=== PATIENT | female | born 1990 | race Caucasian/White ===

== ENCOUNTER 2022-04-07 10:00 | Outpatient (REF) | payer OTHER, MEDICAID, SELFPAY ==
[2022-04-07 18:30] LABS: CT PCR NOT DETECTED (Not Detect.); NG PCR NOT DETECTED (Not Detect.)
[2022-04-08 13:04] LABS: BV Int Neg Control Negative (Negative); BV Int Pos Control Positive (Positive)
[2022-04-13 09:52] LABS: HPV 16 RNA NOT DETECTED (NOT DETECTED); HPV mRNA E6/E7 rflx Detected (Not Detected)
== END 2022-04-07 10:01 | disposition home or self-care (01) ==
LOC: HO.LAB 10:00
PROVIDERS: Visit Provider Obstetrics & Gynecology
DX: Z01.419 Encounter for gynecological examination (general) (routine) without abnormal findings (principal); Z11.51 Encounter for screening for human papillomavirus (HPV); N89.8 Other specified noninflammatory disorders of vagina
CPT/HCPCS: 87480; 87491; 87510; 87591; 87624; 87625; 87660; 88142

== ENCOUNTER 2022-04-10 09:35 | Outpatient (REF) | payer OTHER, MEDICAID, SELFPAY ==
[2022-04-11 09:44] LABS: BV Int Neg Control Negative (Negative); BV Int Pos Control Positive (Positive)
== END 2022-04-10 09:36 | disposition home or self-care (01) ==
LOC: HO.LAB 09:35
PROVIDERS: PCP Nurse Practitioner Family; Visit Provider Obstetrics & Gynecology
DX: Z32.02 Encounter for pregnancy test, result negative (principal); N89.8 Other specified noninflammatory disorders of vagina; R10.2 Pelvic and perineal pain
CPT/HCPCS: 81025; 87480; 87510; 87660

== ENCOUNTER 2022-04-10 15:20 | Outpatient (REF) | payer OTHER, MEDICAID, SELFPAY ==
--- NOTE | ~2022-04-10 | US_ITS ---
EXAMINATION: US PELVIS CLINICAL INFORMATION: Left lower quadrant pain, vaginal discharge, last menstrual period 03/22/2022. COMPARISON: 04/04/2019 TECHNIQUE: Ultrasound of the pelvis is performed using both transabdominal and transvaginal transducers along with Doppler. Transvaginal imaging is performed due to inadequate visualization transabdominally. FINDINGS: The uterus is heterogeneous and measures 8.5 x 3.8 x 5.6 cm. No discrete fibroids. Small amount of fluid in the cul-de-sac. 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 Nabothian cysts are identified. Endometrial thickness is 1.5 cm. Right ovary measures 3.0 x 2.6 x 2.4 cm, volume 9.8 mL. 1.8 x 1.5 x 1.9 cm complex right ovarian cyst, possibly a corpus luteum. Left ovary measures 3.0 x 2.1 x 2.1 cm, volume 6.9 mL. Multiple tiny echogenic foci within the left ovary are nonspecific, possibly tiny calcifications. US/US pelvic and transvaginal IMPRESSION: 1. Irregular endometrium with thickness of 1.5 cm. 2. Small amount of free fluid in the cul-de-sac. 3. 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 4. Right ovarian 1.9 cm complex cyst, possibly a corpus luteum, was not previously identified. 5. Multiple tiny echogenic foci within the left ovary are nonspecific, possibly tiny calcifications, not previously identified. Recommend correlation with a clinical exam and possible gynecologic consultation. Recommend follow-up ultrasound in 6-8 weeks.
== END 2022-04-10 15:21 | disposition home or self-care (01) ==
LOC: HO.US 15:20
PROVIDERS: PCP Nurse Practitioner Family; Visit Provider Obstetrics & Gynecology
DX: N94.9 Unspecified condition associated with female genital organs and menstrual cycle (principal)
CPT/HCPCS: 76830; 76856

== ENCOUNTER 2022-04-17 12:55 | Outpatient (REF) | payer OTHER, MEDICAID, SELFPAY ==
[2022-04-21 09:02] LABS: CA-125 10 U/mL (<35)
== END 2022-04-17 12:56 | disposition home or self-care (01) ==
LOC: HO.LAB 12:55
PROVIDERS: PCP Nurse Practitioner Family; Visit Provider Obstetrics & Gynecology
DX: N83.299 Other ovarian cyst, unspecified side (principal)
CPT/HCPCS: 36415; 86304

== ENCOUNTER 2022-04-20 11:06 | Outpatient (REF) | payer OTHER, MEDICAID, SELFPAY | END 2022-04-20 11:07 | disposition home or self-care (01) | LOC: HO.LAB 11:06 | PROVIDERS: PCP Nurse Practitioner Family; Visit Provider Obstetrics & Gynecology | DX: Z32.02 Encounter for pregnancy test, result negative (principal); R87.810 Cervical high risk human papillomavirus (HPV) DNA test positive | CPT/HCPCS: 57454; 81025; 88305; 88341; 88342; 88360 ==

== ENCOUNTER → 2022-04-23 13:41 | Outpatient (BNVA) | payer OTHER, MEDICAID, SELFPAY | PROVIDERS: PCP Nurse Practitioner Family; Visit Provider Obstetrics & Gynecology | DX: Z30.430 Encounter for insertion of intrauterine contraceptive device (principal); N87.1 Moderate cervical dysplasia | CPT/HCPCS: 58300; J7298 ==

== ENCOUNTER → 2022-05-18 14:48 | Outpatient (BNVA) | payer OTHER, MEDICAID, SELFPAY | PROVIDERS: PCP Nurse Practitioner Family; Visit Provider Obstetrics & Gynecology | DX: Z32.02 Encounter for pregnancy test, result negative (principal); R10.2 Pelvic and perineal pain | CPT/HCPCS: 81025 ==

== ENCOUNTER 2022-05-22 10:39 | Day surgery (SDC) | payer OTHER, MEDICAID, SELFPAY ==
[2022-05-04 14:14] VITALS: BMI 23.4
--- NOTE | 2022-05-07 08:54 | HO.ANESPROP2 ---
Documented by User: Carla Sanchez NP 05/07/22 08:55 HPI - Anesthesia Eval Consult details Narrative: 31yo F for LEEP Cone with post Cone ECC,Mirena removal and reinsertion Suboxone daily PMFSH Active Problems Active Problems: All Active Problems (Updated 04/23/22 @ 14:31 by Luciano Javier MD) RAMIRO II (cervical intraepithelial neoplasia II) (Acute) Encounter for IUD insertion (Acute) Cervical high risk HPV (human papillomavirus) test positive (Acute) Complex ovarian cyst (Acute) Pelvic pain (Acute) Vaginal discharge (Acute) Adnexal fullness (Acute) Family planning (Acute) Well woman exam (Acute) Past Medical History Medical History (Updated 05/18/22 @ 15:21 by Luciano Javier MD) Depression Surgical History Surgical History (Updated 05/22/22 @ 11:05 by Jennifer Friedman RN) H/O dilation and curettage H/O LEEP Social History Social History Patient Tobacco Use Status: Former Tobacco user Tobacco use type: Cigarette Use of substances other than those prescribed or required for medical reasons: No Advance Directives: No Advance Directives Information Provided: Yes Meds Allergies Allergy/AdvReac Type Severity Reaction Status Date / Time No Known Allergies Allergy Verified 04/23/22 14:13 [No Known Allergies*] Home Medications Medication Instructions Recorded Confirmed Last Taken Type buprenorphine 4 mg-naloxone 1 mg 4 mg sublingual DAILY 04/07/22 05/22/22 Unknown History sublingual film bupropion HCl 300 mg 24 hr tablet, 1 tab PO QAM 05/22/22 05/22/22 Unknown History extended release ibuprofen 800 mg tablet 1 tab PO TID 05/22/22 05/22/22 05/21/22 History Exam Exam Date and Time: May 07, 2022 0854 Height,Weight and Vital Signs: Height 5 ft 7 in Weight 68 kg Assessment and Plan Assessment Anesthesia Assessment: Chart Reviewed Documented by User: Kellen Rene MD 05/22/22 12:43 PMF Past Medical History Medical History (Updated 05/18/22 @ 15:21 by Luciano Javier MD) Depression Family History Family history of problems with anesthesia: No Surgical History Surgical History (Updated 05/22/22 @ 11:05 by Jennifer Friedman RN) H/O dilation and curettage H/O LEEP History of Problems with Anesthesia: No Social History Social History Patient Tobacco Use Status: Former Tobacco user Tobacco use type: Cigarette Use of substances other than those prescribed or required for medical reasons: No Advance Directives: No Advance Directives Information Provided: Yes Meds Allergies Allergy/AdvReac Type Severity Reaction Status Date / Time No Known Allergies Allergy Verified 04/23/22 14:13 [No Known Allergies*] Home Medications Medication Instructions Recorded Confirmed Last Taken Type buprenorphine 4 mg-naloxone 1 mg 4 mg sublingual DAILY 04/07/22 05/22/22 Unknown History sublingual film bupropion HCl 300 mg 24 hr tablet, 1 tab PO QAM 05/22/22 05/22/22 Unknown History extended release ibuprofen 800 mg tablet 1 tab PO TID 05/22/22 05/22/22 05/21/22 History Exam Airway Mallampati Class: II TM Dist: >3cm Neck ROM: Full Assessment and Plan Assessment Anesthesia Assessment: Anesthesia Plan Discussed Final Anesthetic Review Family History of Problems with Anesthesia: No History of Problems with Anesthesia: No NPO: Yes ASA Class: II Final Preanesthetic Review: No Changes in Pt Med Stat, Meds/Allgs Chart Reviewed, Consent Obtained/Reviewed and Anes Risks/Benef Reviewed Patient Risk: Low Procedure Risk: Low Anesthetic Plan Anesthetic Plan: GA Disposition: Standard PACU
[2022-05-22 11:06] VITALS: BMI 21.9
[2022-05-22 11:18] VITALS: BP 133/63; PULSE 77; RESP 16; TEMP 37.1; O2SAT 98
--- NOTE | 2022-05-22 11:20 | MHC.SHP ---
Pre-Procedural Eval Section A Date of Service: 05/22/22 The patient is an INPATIENT: No Changes since office visit: No Cold of Flu in the past 2 weeks, No New Medical Problems, No Changes in Medication and No Patient answered all questions The History & Physical has been completed within 30 days and I have reviewed it.: Yes Section B Chief Complaint: Moderate cervical dysplasia Allergies: Allergies Allergy/AdvReac Type Severity Reaction Status Date / Time No Known Allergies Allergy Verified 04/23/22 14:13 [No Known Allergies*] Plan Diagnosis/Plan: Unchanged I have reviewed the history and physical and performed a pertinent physical examination on my patient. No changes have occurred unless specified.
[2022-05-22] MEDS: Lactated Ringers 1,000 ML 100 ML IVCONT (11:26)
[2022-05-22 11:32] LABS: UPreg QC Valid YES; Urine Pregnancy NEGATIVE (NEGATIVE)
[2022-05-22 11:42] LABS: Amphetamine Screen Urine Not Detected (Not Detect); Barbiturates, Urine Not Detected (Not Detect); Benzodiazepines Screen Urine Not Detected (Not Detect); Cannabinoid Screen Urine Not Detected (Not Detect); Cocaine Screen Urine Not Detected (Not Detect); Fentanyl, urine Not Detected (Not Detect); Opiate Screen Urine Not Detected (Not Detect); Phencyclidine Screen Urine Not Detected (Not Detect)
--- NOTE | 2022-05-22 13:18 | P.BOP_ITS ---
Brief Operative Note Date of Service: 05/22/22 Pre-op diagnosis: RAMIRO 2 Post-op diagnosis: same Procedure: LEEP CONE with post CONE ECC, IUD removal, with Mirena IUD insertion Surgeon: Luciano Javier MD Anesthesia: GLMA and other (Paracervical block) Was an Supervisor Sterile Processing used for this Procedure?: No Estimated blood loss (mL): 0 Pathology: other (Cervical cone, endocervix, Post cone ECC, wider and deeper posterior cervical lip) Condition: stable Disposition: other (Home)
--- NOTE | 2022-05-22 13:19 | P.OP_ITS ---
Operative Note Operative Note Date of Service: 05/22/22 Narrative: Pre op diagnosis: RAMIRO 2 Operation: Colposcopy, Loop electrical excision procedure cone, endocervical excision, post cone ECC, posterior cervical lip wider and deeper, IUD removal and Mirena IUD insertion Postop diagnosis: the same Quantitative blood loss: 50 cc Surgeon: Luciano Javier MD, FACOG Visiting Professor: None Pathology: Cervical cone, top-hat endo cervical excision, endo cervical curettage Complications: none Anesthesia: GLMA and Para cervical block Procedure: The patient was put in a dorsal lithotomy position, scrubbed and draped in the usual sterile fashion. A speculum was inserted inside the patient's vagina. The cervix is assessed using the colposcope with acetic acid , the lesions were seen, and at least 1 cm of the squamocolumnar junction was observed. 20 x 5 mm size loop was selected based upon the diameter of the lesion. Lugol solution was used to outline the lesions and area of the transformation zone order to be removed 10 cc of xylocaine with epinephrine were injected submucosally into the surface of the cervix (ectocervix) at the 3, 6, 9, and 12 o'clock positions. The electrosurgical generator is set at 40 camilo on blend 1. The loop is carefully passed simultaneously around and under the transformation zone, in order to ensure excising it making sure the lesion is at least 5 mm far from the specimen margins . The loop was allowed to glide through the cervix from one side to the other, allowing the cutting current to divide the tissue. Additional tissue was excised from this area with a smaller-diameter loop , endo cervical top-hat excision was performed, this was followed by posterior cervical lip excision wider than the margins of the previous cone and deeper An endo cervical curettage is performed following completion of excision, and hemostasis is obtained with a Ball electrode or regular tip cautery. Then the anterior cervical lip was grasped with a single-tooth tenaculum, the uterine sounded to 7 cm. The sound was then withdrawn. The IUD was loaded in a s terile manner and advanced into position. The string was visualized and cut to 3 cm. Tenaculum site hemostatic. All instruments removed from vagina. At the end, Monsel's solution was applied to the cone bed. The patient tolerated the procedure well and, all instruments were taken out of the patient vaginal cavity, and the patient was transferred to the PACU in stable condition.
[2022-05-22 13:30] VITALS: BP 111/57; PULSE 84; RESP 16; TEMP 36.5; O2SAT 100
[2022-05-22 13:35] VITALS: BP 115/58; PULSE 71; RESP 16; O2SAT 100
[2022-05-22 13:40] VITALS: BP 105/61; PULSE 74; RESP 16; O2SAT 100
[2022-05-22 13:45] VITALS: BP 118/68; PULSE 71; RESP 16; TEMP 36.4; O2SAT 100
== END 2022-05-22 14:06 | disposition home or self-care (01) ==
PROVIDERS: Nurse Practitioner; PCP Nurse Practitioner Family; Visit Provider Obstetrics & Gynecology
PROC: 0UBC7ZZ Excision of Cervix, Via Natural or Artificial Opening (ICD-10-PCS; CPT 57522; principal; 2022-05-22 12:10)
DX: N87.1 Moderate cervical dysplasia (principal); Z30.433 Encounter for removal and reinsertion of intrauterine contraceptive device; F32.A Depression, unspecified; Z79.1 Long term (current) use of non-steroidal anti-inflammatories (NSAID); Z79.899 Other long term (current) drug therapy; F17.210 Nicotine dependence, cigarettes, uncomplicated
CPT/HCPCS: 57461; 58300; 80307; 81025; 88305; 88307; 88342; 88360; J1885; J2250; J2405; J3010; J7298

== ENCOUNTER 2022-05-27 09:25 | Outpatient (REF) | payer OTHER, MEDICAID, SELFPAY ==
[2022-05-27 18:39] LABS: CT PCR NOT DETECTED (Not Detect.); NG PCR NOT DETECTED (Not Detect.)
[2022-05-28 13:25] LABS: BV Int Neg Control Negative (Negative); BV Int Pos Control Positive (Positive)
== END 2022-05-27 09:26 | disposition home or self-care (01) ==
LOC: HO.LNP 09:25
PROVIDERS: Visit Provider Obstetrics & Gynecology
DX: Z11.3 Encounter for screening for infections with a predominantly sexual mode of transmission (principal); R10.2 Pelvic and perineal pain; N89.8 Other specified noninflammatory disorders of vagina
CPT/HCPCS: 87086; 87088; 87186; 87480; 87491; 87510; 87591; 87660

== ENCOUNTER 2022-05-28 14:33 | Outpatient (REF) | payer OTHER, MEDICAID, SELFPAY ==
--- NOTE | ~2022-05-28 | US_ITS ---
EXAMINATION: US PELVIS CLINICAL INFORMATION: Pelvic and perineal pain. COMPARISON: Pelvic ultrasound 04/10/2022. TECHNIQUE: Ultrasound of the pelvis is performed using both transabdominal and transvaginal transducers along with Doppler. Transvaginal imaging is performed due to inadequate visualization transabdominally. FINDINGS: Uterus: The uterus is anteverted, anteflexed likely arcuate in appearance and measures 7.8 cm in length, 4.5 mL in AP and 5.8 cm in transverse dimension. The double wall endometrial thickness is 1.0 cm. There is IUD in correct position within the endometrial canal. The uterus is smooth in contour and has normal myometrial echogenicity. No visible fibroid. There are small nabothian cysts seen in the cervix Adnexa: Both ovaries are visualized. There is normal color flow to the adnexa. There is no ovarian torsion. There is no pelvic ascites or fluid collection. Right ovary measures 4.3 x 2.0 x 3.7 cm and volume 16.8 mL. There is anechoic cyst measuring 2.4 x 2.0 x 2.6 cm. Previously it measured 3.0 x 2.6 x 2.4 cm. Left ovary is visualized on transabdominal ultrasound only and measures 2.7 x 2.7 x 2.5 cm and volume 9.2 mL. There is anechoic 1.7 x 1.6 x 1.6 cm. Previously left ovary measured 3.0 x 2.1 x 2.1 cm. A small amount of free fluid in the cul-de-sac. US/US pelvic and transvaginal IMPRESSION: Unremarkable uterus and appears acute in appearance. Small nabothian cysts in the cervix with minimal free fluid in cul-de-sac. Bilateral simple ovarian cysts.
== END 2022-05-28 14:34 | disposition home or self-care (01) ==
LOC: HO.US 14:33
PROVIDERS: Visit Provider Obstetrics & Gynecology
DX: R10.2 Pelvic and perineal pain (principal)
CPT/HCPCS: 76830; 76856

== ENCOUNTER 2022-07-08 15:44 | Outpatient (REF) | payer OTHER, MEDICAID, SELFPAY ==
[2022-07-09 03:34] LABS: CT PCR NOT DETECTED (Not Detect.); NG PCR NOT DETECTED (Not Detect.)
[2022-07-09 10:17] LABS: BV Int Neg Control Negative (Negative); BV Int Pos Control Positive (Positive)
== END 2022-07-08 15:45 | disposition home or self-care (01) ==
LOC: HO.LNP 15:44
PROVIDERS: Visit Provider Obstetrics & Gynecology
DX: N89.8 Other specified noninflammatory disorders of vagina (principal)
CPT/HCPCS: 87480; 87491; 87510; 87591; 87660

== ENCOUNTER 2022-07-09 16:27 | Outpatient (REF) | payer OTHER, MEDICAID, SELFPAY ==
[2022-07-10 07:12] LABS: Syphilis Screen Nonreactive (Nonreactive)
[2022-07-10 13:28] LABS: HBsAGNum1 0.28 S/CO (0.00-0.99); HIV AB/AG Nonreactive (Nonreactive); HIV Num 1 0.06 S/CO (0.00-0.99); Hepatitis B Surface Antigen Negative (Negative); ~HepC Num1 0.05 S/CO (0.00-0.79); ~Hepatitis C Antibody Nonreactive (Nonreactive)
== END 2022-07-09 16:28 | disposition home or self-care (01) ==
LOC: HO.LAB 16:27
PROVIDERS: Visit Provider Obstetrics & Gynecology
DX: Z71.1 Person with feared health complaint in whom no diagnosis is made (principal); Z11.3 Encounter for screening for infections with a predominantly sexual mode of transmission
CPT/HCPCS: 36415; 86780; 86803; 87340; 87389

== ENCOUNTER → 2022-08-04 09:35 | Outpatient (BNVA) | payer OTHER, MEDICAID, SELFPAY | PROVIDERS: PCP Nurse Practitioner Family; Visit Provider Advanced Practice Midwife | DX: Z30.432 Encounter for removal of intrauterine contraceptive device (principal); Z30.09 Encounter for other general counseling and advice on contraception; Z30.011 Encounter for initial prescription of contraceptive pills; N87.1 Moderate cervical dysplasia; R87.810 Cervical high risk human papillomavirus (HPV) DNA test positive; N83.299 Other ovarian cyst, unspecified side; R10.2 Pelvic and perineal pain | CPT/HCPCS: 58301 ==

== ENCOUNTER 2022-10-07 17:35 | Outpatient (REF) | payer OTHER, MEDICAID, SELFPAY ==
[2022-10-08 11:15] LABS: BV Int Neg Control Negative (Negative); BV Int Pos Control Positive (Positive)
== END 2022-10-07 17:36 | disposition home or self-care (01) ==
LOC: HO.LAB 17:35
PROVIDERS: Visit Provider Internal Medicine
DX: N76.0 Acute vaginitis (principal); B96.89 Other specified bacterial agents as the cause of diseases classified elsewhere
CPT/HCPCS: 87480; 87510; 87660